=== PATIENT | male | born 1995 | race Caucasian/White ===

== ENCOUNTER 2022-09-26 13:58 | Emergency (ER) | payer OTHER ==
[2022-09-26] MEDS ORDERED: Lidocaine 1% 10 ML MDV INJECT ONE (14:03)
[2022-09-26] MEDS ORDERED: ceFAZolin 1 GM Vial IVPUSH ONE (14:26)
[2022-09-26] MEDS ORDERED: fentaNYL 50 MCG/ML SDV IVPUSH ONE (14:26)
[2022-09-26] MEDS: Diphtheria,Pertussis(Acell),Tetanus Vaccine 0.5 ML Syringe IM ONE ×2 (14:28→14:39)
[2022-09-26] MEDS ORDERED: Acetaminophen/oxyCODONE 325-5 MG Tab PO ONE (15:26)
== END 2022-09-26 15:44 | disposition short-term general hospital (02) ==
LOC: VM.ED 13:58
DX: S62.630B Displaced fracture of distal phalanx of right index finger, initial encounter for open fracture (principal); W23.0XXA Caught, crushed, jammed, or pinched between moving objects, initial encounter; Y99.0 Civilian activity done for income or pay
CPT/HCPCS: 64450; 73140; 99284; A9270; J0690; J3010; 90715; J3490